=== PATIENT | male | born 1980 | race Two or more races ===

== ENCOUNTER 2019-07-03 17:48 | Inpatient (IN) | payer SELFPAY ==
[~2019-07-03] VITALS: Ht 165.1 cm; Wt 75.3 kg
[2019-07-03] VITALS (11 sets, daily range): BP systolic 91–148; BP diastolic 49–97; Ht 165.1 cm; Wt 75.3 kg
--- NOTE | ~2019-07-03 | DS ---
PATIENT:OSMIN BLANCO :78 MEDICAL RECORD: [id number] DISCHARGE SUMMARY ADMISSION DATE: 07/04/19 DISCHARGE DATE: 07/05/19 DATE OF ADMISSION: 07/03/2019. DATE OF DISCHARGE: 07/05/2019. IMPRESSION: Acute myocardial infarction. BRIEF HISTORY AND HOSPITAL COURSE: Admitted with acute myocardial infarction, underwent CHIEF CLERK with excellent results, started on a statin, Plavix, and ARB will consider starting beta blockade as outpatient due to borderline pressure currently. ACTIVITY: As tolerated. DIET: AHA diet. We will consider cardiac rehabilitation. Smoking cessation was reiterated on multiple occasions. Will be seen back in the office in approximately 3 to 4 weeks. TRANSINT:[id number] Voice Confirmation ID: [id number] DOCUMENT ID: [id number] LANCE JIMENEZ MD CC: [id number] DICTATION DATE: 07/05/19 0939 FARM TRACTOR OPERATOR: 07/06/19 0657 DIS IN 07/05/19 [id number] [place] [address]
--- NOTE | ~2019-07-03 | HEMODYNAMI ---
PATIENT:OSMIN BLANCO MEDICAL RECORD: [id number] : [birth year] [id number] ADMISSION DATE: 07/03/19 Generatedon:07/03/201919:24 Patient name: OSMIN BLANCO Patient #: [id number] SSN: : 1980 Date of study: 07/03/2019 Page: Of Hemodynamic Procedure Report Patient Data Patient Demographics Procedure consent was obtained First Name: OSMIN Gender: Male Last Name: FRANCIS : 1980 Patient #: [id number] Age: 38 year(s) Race: Other Additional ID: [id number] Contact details Address: [facility] State: [place] City: [facility] [place], [place] Zip code: [address] Admission Admission Data Admission Date: 07/03/2019 Admission Time: 17:48 Procedure Procedure Types Cath Procedure Diagnostic Procedure LHC LHC w/Coronaries PCI Procedure AMI/SVG/VENIPUNCTURIST PTCA or Stent AMI-BMS/JAYLIN Initial Hemochron ACT Test Procedure Description Procedure Date Procedure Date: 07/03/2019 Procedure Start Time: 18:58 Procedure End Time: 19:22 Procedure Staff Name Function Minor Hernández MD Performing Physician Silverio Li RT Monitor Ester Ferraro RN Nurse Antonia Gotti RT Scrub Procedure Data Cath Procedure Fluoroscopy Diagnostic fluoroscopy Total fluoroscopy Time: 4.2 time: 4.2 min min Diagnostic fluoroscopy Total fluoroscopy dose: 822 dose: 822 mGy mGy Contrast Material Contrast Material Type Amount (ml) Isovue 300 112 Entry Location Entry Primary Successful Side Size Upsize Upsize Entry Closure Succes sful Closure Location (Fr) 1 (Fr) 2 (Fr) Remarks Device Remarks Femoral Right 6 Fr Exoseal artery Short Estimated blood loss: 10 ml Diagnostic catheters Device Type Used For End Catheter Placement MULTIPACK JL 4.0 5Fr Procedure catheter MULTIPACK 3DRC 5Fr Procedure catheter MULTIPACK Pigtail 5 Fr Procedure catheter Procedure Complications No complications Procedure Medications Medication Administration Route Dosage 0.9% NaCl I.V. 100 ml/hr Oxygen etCO2 Nasal cannula 2 l/min Lidocaine 2% added to field 20 Heparin Flush Bag added to field 2 bags (1000units/500ml NS) Versed I.V. 2 mg Fentanyl I.V. 50 mcg Heparin Bolus I.V. 5000 units Integrilin (Bolus I.V. 6.8 ml 2mg/ml) Fentanyl I.V. 50 mcg Integrilin (Bolus wasted 3.2 ml 2mg/ml) Hemodynamics Rest Heart Rate: 82 (bpm) Pressure Samples Time Site Value (mmHg) Purpose Heart Use Rate(bpm) 19:15 LV 87/11,20 Snapshot 93 19:16 AO 85/62(73) Pullback 88 Gradients Valve Time Site Site 2 Mean SEP/DFP Peak To Heart Use 1 (mmHg) (sec/min) Peak Rate (mmHg) (bpm) Aortic 19:16 LV AO 3 16 88 85/62(73) Calculations Valve P-P Mean Valve Index Valve Source Name Gradient Area Flow (cm2) Aortic 3 3 Snapshots Pre Cath Intra NCS Post Cath Vital Signs Time Heart Resp SPO2 etCO2 NIBP (mmHg) Rhythm Pain Sedation Rate (ipm) (%) (mmHg) Status Level (bpm) 18:54:42 70 37 96 26.3 127/82(102) NSR 0 (11) 10(A) , No pain 18:58:44 76 27 98 27.8 137/89(106) NSR 0 (11) 10(A) , No pain 19:02:52 81 31 97 27 117/82(99) NSR 0 (11) 10(A) , No pain 19:06:54 92 27 97 30.1 128/79(112) NSR 0 (11) 10(A) , No pain 19:10:57 100 25 98 27 103/67(76) NSR 0 (11) 10(A) , No pain 19:14:57 105 25 96 28.6 107/73(86) NSR 0 (11) 10(A) , No pain 19:18:53 86 22 98 29.3 119/88(92) NSR 0 (11) 10(A) , No pain Medications Time Medication Route Dose Verified Delivered Reason Notes Effectiveness by by 18:53:46 0.9% NaCl I.V. 100 Minor Norman used for ml/hr TonyAki Ferraro procedure RN 18:53:52 Oxygen etCO2 2 Minor Ester used for Nasal l/min [facility] procedure cannula RN 18:53:57 Lidocaine 2% added 20ml Minor Gaxiola for local to vial [facility] anesthetic field MD DASILVA 18:54:01 Heparin Flush added 2 Minro Gaxiola used for Bag to bags [facility] procedure (1000units/500ml field MD DASILVA NS) 18:55:56 Versed I.V. 2 mg Minor Ester for sedation St Aki Ferraro MD, RN 18:56:06 Fentanyl I.V. 50 Minor Ester for sedation mcg St Aki Ferraro MD RN 19:04:44 Heparin Bolus I.V. 5000 Minor Ester for verif ied units [facility] anticoagulation with Dr. DASILVA RN [place] 19:04:57 Integrilin I.V. 6.8 Minor Ester for (Bolus 2mg/ml) ml St Aki Ferraro antiplatelet RN therapy 19:05:41 Fentanyl I.V. 50 Minor Ester for sedation mcg St Aki Ferraro MD, RN 19:16:33 Integrilin wasted 3.2 Minor Ester for (Bolus 2mg/ml) ml St Aki Ferraro antiplatelet RN therapy Procedure Log Time Note 18:39:02 Silverio Li RT(R) sent for patient. Start room use. 18:39:03 Time tracking: Regular hours (M-F 7:00 - 5:00) 18:39:07 Plan of Care:Hemodynamics will remain stable., Cardiac rhythm will remain stable., Comfort level will be maintained., Respiratory function will remain adequate., Patient/ family verbilizes understanding of procedure., Procedure tolerated without complication., Recovers from procedure without complications.. 18:40:42 Use device set Femoral Dx 18:40:45 Use device set TONY PCI 18:40:47 ACIST Syringe (61992) opened to sterile field. 18:40:48 Bag Decanter (2001S) opened to sterile field. 18:40:48 Medline Cath Pack ([id number]) opened to sterile field. 18:40:50 ACIST Hand Control (37695) opened to sterile field. 18:40:50 ACIST Manifold (26777) opened to sterile field. 18:40:51 Tegaderm 4 x 4 (1626W) opened to sterile field. 18:40:55 DIAGNOSTIC Multipack 5Fr catheter set ([id number]) opened to sterile field. 18:40:57 EMERALD Guide Wire (502-178) opened to sterile field. 18:41:00 INFLATOR Merit [place] (SA8148) opened to sterile field. 18:41:02 WHISPER 300cm guide wire ([id number]) opened to sterile field. 18:41:03 SHEATH 6FR [place] (IOZ648) opened to sterile field. 18:41:33 Lab results completed and on chart. 18:41:36 Risk of Mortality: 0.1 18:41:38 Risk of blood transfusion: 0.7 18:41:41 Risk of BALDEMAR: 1.9 18:48:39 Patient arrives emergently. 18:48:45 Patient arrived from ED to CCL 2. Patient remains on bed/stretcher for procedure. 18:48:48 Signed procedure consent form obtained from patient. 18:48:49 Warm blankets applied, and liz hugger turned on for patient comfort. 18:48:49 Correct patient and procedure confirmed by team. 18:48:50 ECG and BP/O2 sat monitors applied to patient. 18:48:57 Alarms reviewed by R. N. 18:48:58 Sharps counted by scrub and verified by R.N. 18:53:38 Vital chart was started 18:53:46 0.9% NaCl 100 ml/hr I.V. was administered by Ester Ferraro RN; used for procedure; Verbal order read back and verified. 18:53:52 Oxygen 2 l/min etCO2 Nasal cannula was administered by Ester Ferraro RN; used for procedure; Verbal order read back and verified. 18:53:57 Lidocaine 2% 20ml vial added to field was administered by Minor Hernández MD; for local anesthetic; Verbal order read back and verified. 18:54:01 Heparin Flush Bag (1000units/500ml NS) 2 bags added to field was administered by Minor Hernández MD; used for procedure; Verbal order read back and verified. 18:54:46 Baseline sample Acquired. 18:54:50 Rhythm: sinus rhythm , w/ ST elevation 18:54:51 Full Disclosure recording started 18:54:54 H&P Date Dictated: 07/03/2019 Emergent; H&P N/A. 18:54:56 Pre-procedure instructions explained to patient. 18:54:56 Pre-op teaching completed and patient verbalized understanding. 18:54:57 Family in waiting room. 18:55:01 Patient NPO since Lunch. 18:55:03 Is the patient allergic to Iodine/contrast media? No. 18:55:09 Is patient on blood thinner?Yes 18:55:11 ACC The patient was administered the following blood thiners within the last 24 hours: ACCPlavix 18:55:19 PLAVIX LOADED IN ER 18:55:21 Patient diabetic? No. 18:55:27 Previous problem with sedation/anesthesia? No ? 18:55:30 Snore? Yes 18:55:35 Sleep apnea? No 18:55:36 Deviated septum? No 18:55:37 Opens mouth fully? Yes 18:55:38 Sticks out tongue? Yes 18:55:39 Airway obstruction? No ? 18:55:40 Dentures? No ? 18:55:43 Pre procedure: right dorsailis pedis pulse 1+ Palpable, but thready & weak; easily obliterated 18:55:45 Patient pain scale 0/10 ?. 18:55:53 IV patent on arrival in left forearm with 0.9% NaCl at O. 18:55:56 Versed 2 mg I.V. was administered by Ester Ferraro RN; for sedation; Verbal order read back and verified. 18:55:58 Physician arrived 18:55:59 --------ALL STOP TIME OUT------ 18:55:59 Final Timeout: patient, procedure, and site verified with staff and physician. All members of the team are in agreement. 18:56:02 Right groin site verified by team. 18:56:05 Fire Safety Assessment: A--An alcohol-based skin anteseptic being used preoperatively., C--Open oxygen or nitrous oxide is being used., D--An ESU, laser, or fiber-optic light is being used. 18:56:06 Fentanyl 50 mcg I.V. was administered by Ester Ferraro RN; for sedation; Verbal order read back and verified. 18:56:08 Physical assessment completed. ASA score P 3 - A patient with severe systemic disease as per Minor Hernández MD. 18:56:11 1) 90+ Normal kidney functon but urine findings or structural abnormalities or genetic trait point to kidney disease. 18:56:14 Maximum allowable contrast dose (3.7 X eGFR X 0.75)250 ml. 18:56:17 Sedation plan: IV Moderate Sedation Medication:Versed, Fentanyl 18:58:43 Procedure started. 18:58:54 Local anesthetic to right femoral artery with Lidocaine 2% by Minor Hernández MD.INITIAL ACCESS ONLY 19:00:33 A 6 Fr Short sheath was inserted into the Right Femoral artery 19:01:02 A MULTIPACK JL 4.0 5Fr catheter was advanced over the wire and used for Procedure. 19:01:53 LCA angiography performed. 19:02:18 ACCDominant side:Left 19:02:20 Catheter removed. 19:03:36 A MULTIPACK 3DRC 5Fr catheter was advanced over the wire and used for Procedure. 19:03:39 RCA angiography performed. 19:03:43 Catheter removed. 19:03:56 GUIDE 6FR XBLAD 3.5 catheter ([id number]) opened to sterile field. 19:04:04 6 Fr XBLAD 3.5 guide catheter was inserted over the wire 19:04:12 Pre PCI Site: [place] pLAD has 100% stenosis. 19:04:14 ACC Pre-intervention ALLAN Flow is 0. 19:04:20 Whisper wire advanced. 19:04:44 Heparin Bolus 5000 units I.V. was administered by Ester Ferraro RN; for anticoagulation; verified with Dr. Braxton Verbal order read back and verified. 19:04:57 Integrilin (Bolus 2mg/ml) 6.8 ml I.V. was administered by Ester Ferraro RN; for antiplatelet therapy; Verbal order read back and verified. 19:05:41 Fentanyl 50 mcg I.V. was administered by Ester Ferraro RN; for sedation; Verbal order read back and verified. 19:06:39 Wire advanced across lesion. 19:07:34 Inflate balloon Inflation number: 1 A EMERGE OTW 3.0 x 15 balloon ([id number]) was prepped and advanced across the Prox LAD 100, then inflated to 14 JU for 0:30 (min:sec) . 19:12:44 Pt went into sustained V-tach. Pt shokced at 360 joules, restoring sinus rhythm. 19:12:57 Quick Combo opened to sterile field. 19:13:04 Balloon removed over the wire. 19:13:17 Place stent Inflation Number: 2 A INTEGRITY 4.0 x 18 stent ([id number]) was prepped and advanced across the Prox LAD 100. The stent was deployed at 14 JU for 0:30 (min:sec) 0. 19:13:25 EXOSEAL 6Fr (EX600) opened to sterile field. 19:13:37 ACC Post-intervention ALLAN Flow is 3. 19:13:47 Post PCI Site: [place] pLAD has 0% stenosis. 19:13:49 Stent catheter was removed intact over wire. 19:13:50 Wire removed. 19:13:50 Guide catheter removed. 19:14:49 A MULTIPACK Pigtail 5 Fr catheter was advanced over the wire and used for Procedure. 19:16:07 LV angiography performed. 19:16:08 LV gram done using VILLALOBOS 19:16:13 EF : 40 % 19:16:15 LV hemodynamics recorded. 19:16:17 Injector settings: Ml/sec: 10, Volume: 20, 19:16:20 Catheter removed. 19:16:33 Integrilin (Bolus 2mg/ml) 3.2 ml wasted was administered by Ester Ferraro RN; for antiplatelet therapy; Verbal order read back and verified. 19:16:37 Sheath removed intact; hemostasis achieved with Exoseal to the Right Femoral artery. 19:16:39 Procedure ended.(Physican Out) 19:16:52 Fluoroscopy time 04.20 minutes. 19:16:55 Fluoroscopy dose: 822 mGy 19:16:55 Flurop Dose total: 822 19:17:00 Dose Area Product 29418 mGy/cm. 19:17:06 Contrast amount:Isovue 300 112ml. 19:17:08 Maximum allowable dose exceeded? No. 19:17:09 Sharps counted by scrub and verified by R.N. 19:17:10 Insertion/operative site no bleeding no hematoma. 19:17:13 Post-op/insertion site Right Femoral artery dressed using a 4 x 4 and Tegaderm. 19:17:15 Post Procedure Pulses reassessed and unchanged 19:17:18 Post-procedure physical assessment completed. ASA score P 3 - A patient with severe systemic disease as per Minor Hernández MD. 19:17:21 Post procedure rhythm: sinus rhythm 19:17:27 Estimated blood loss: 10 ml 19:17:57 Post procedure instruction explained to patient.Patient verbalizes understanding. 19:17:57 Patient needs reinforcement of post procedure teaching. 19:18:48 Procedure type changed to Cath procedure, Diagnostic procedure, LHC, C w/Coronaries, PCI procedure, AMI/SVG/VENIPUNCTURIST PTCA or Stent, AMI-BMS/JAYLIN Initial, Hemochron ACT Test 19:18:49 Procedure and supply charges have been captured, reviewed, submitted and are correct. 19:18:52 ACT drawn and resulted at 229 seconds. (normal therapeutic range 180-240 seconds). 19:18:53 Procedure Complication : No complications 19:21:41 Vital chart was stopped 19:21:45 [facility] Findings: MVD- PCI performed (see procedure note) 19:21:46 Operative report dictated upon procedure completion. 19:21:47 See physician's report for complete and final results. 19:21:49 Report given to CVICU. 19:21:52 Patient transfered to CVICU with Bed. 19:22:00 Procedure ended. 19:22:00 Full Disclosure recording stopped 19:23:14 End room use (Document Last) 19:23:24 End room use (Document Last) 19:23:58 End room use (Document Last) Intervention Summary Intervention Notes Time ActionType Lesion and Equipment Action# Pressure Duration Attributes Used 19:07:34 Inflate Prox LAD EMERGE OTW 1 14 00:30 balloon 3.0 x 15 balloon ([id number]) 19:13:17 Place stent Prox LAD INTEGRITY 2 14 00:30 4.0 x 18 stent ([id number]) Device Usage Item Name Manufacture Quantity Catalog Number Hospital Part Current Min imal Lot# / Charge Number Stock Stock Serial# Code ACIST Acist 1 05223 996305 402655 161563 20 Syringe Medical (62776) Systems Inc Bag Decanter Microtek 1 623484 24328 841171 5 () Medical Inc. Medline Cath Medline 1 [id number] 317355 68376 966078 5 Pack ([id number]) ACIST Hand Acist 1 66044 731002 113031 503946 5 Control Medical (22931) Systems Inc ACIST Acist 1 02059 350444 286335 032341 5 Manifold Medical (15365) Systems Inc Tegaderm 4 x 3M 1 1626W 299596 006662 386968 5 4 (1626W) DIAGNOSTIC Cardinal 1 TN2929 730077 86458 161767 30 [place] 5Fr catheter set (YE2213) EMERALD Cardinal 1 502455 928190 124528 554900 5 Guide Wire Health (502455) INFLATOR Merit 1 ZY1959 533972 868483 173869 15 [facility] BasixCompak (IF5571) WHISPER Andrade 1 [id number] 364144 644672 017806 5 300cm guide Vascular wire (7025797YS) SHEATH 6FR Terumo 1 JZQ208 695867 775278 131421 40 [place] (BWE494) MULTIPACK JL Cardinal 1 174670 5 4.0 5Fr Health catheter MULTIPACK Cardinal 1 826701 5 3DRC 5Fr Health catheter GUIDE 6FR Cardinal 1 [id number] 975223 712770 592058 10 XBLAD 3.5 Health catheter ([id number]) EMERGE OTW [place] 1 [id number] 998657 144349 764661 5 86924293 3.0 x 15 Scientific balloon ([id number]) Quick Startupio IonLogix Systems Systems 1 33605-063683 512631 350193 338069 5 INTEGRITY Medtronic 1 [id number] 937335 024166 382856 5 [id number] 4.0 x 18 stent ([id number]) EXOSEAL 6Fr Cardinal 1 EX600 558139 559223 009092 10 (EX600) Health MULTIPACK Cardinal 1 762502 5 Pigtail 5 Fr Health catheter Signature Audit [place] Stage Time Signature Unsigned Intra-Procedure 07/03/2019 Silverio Li 7:23:24 PM RT(R) Intra-Procedure 07/03/2019 Ester Ferraro 7:23:58 PM RN Intra-Procedure 07/03/2019 Minor Carney 7:24:55 PM Aki DASILVA Signatures Performing Physician : Signature : Minor Hernández MD Date : Time : Monitor : Silverio Guillermo RT Signature : Date : Time : Nurse : Ester Ronan RN Signature : Date : Time : [address] [place] [address]
[2019-07-03 18:12] LABS: BASOPHILS 0.2 % (0-2); EOSINOPHILS 1.7 % (0-7); HEMATOCRIT 47.3 % (42.0-54.0); HEMOGLOBIN 16.3 g/dL (13.5-17.5); IMMATURE GRANULOCYTES 0.2 % (0-5); LYMPHOCYTES 34.4 % (15-50); MCHC 34.5 g/dL (31.0-37.0); MCV 81.3 fL (80.0-100.0); MEAN PLATELET VOLUME 9.8 fL (7.4-10.4); MONOCYTES 6.6 % (2-11); NEUTROPHILS 56.9 % (40-80); PLATELET COUNT 238 10x3/uL (130-400); RBC 5.82 10x6/uL (4.20-6.10); RDW 13.8 % (11.5-14.5); WBC 17.5 10x3/uL (4.8-10.8)
--- NOTE | 2019-07-03 18:14 | NUR ---
DIVIDEND DEPOSIT VOUCHER CLERK/BLOOD CONSENTS SIGNED.
--- NOTE | 2019-07-03 18:18 | NUR ---
PT REPORTS NO RELIEF WITH 1ST NITRO
[2019-07-03 18:22] LABS: APTT 26.3 SECONDS (22.8-39.4); INR 1.03 (0.85-1.17)
[2019-07-03 18:25] LABS: CALC OSMOLALITY 282 mosm/kg (275-300); CALCIUM 9.1 mg/dL (8.5-10.1); CARBON DIOXIDE 25.7 mmol/L (21.0-32.0); CHLORIDE - SERUM 104 mmol/L (98-107); CREATININE - SERUM 0.9 mg/dL (0.6-1.3); GLUCOSE 111 mg/dL (74-106); SODIUM 142 mmol/L (136-145); UREA NITROGEN 11 mg/dL (7-18); eGFR NON AFRICAN AMERICAN > 90 mL/min (90-120)
--- NOTE | 2019-07-03 18:25 | NUR ---
PT DENIES PAIN RELIEF WITH 8 MG MORPHINE AND 2 NITRO
--- NOTE | 2019-07-03 18:37 | NUR ---
PT REPORTS PAIN IS WORSE THAN 10/10 AT THIS TIME.
--- NOTE | 2019-07-03 18:40 | NUR ---
STOPPED BOLUS NORMAL SALINE CHANGED RATE TO KVO PER EDP DENISE. PT RECEIVED AROUND 75 ML AT BOLUS RATE.
[2019-07-03 18:46] LABS: ALBUMIN 3.8 g/dL (3.4-5.0); ALKALINE PHOSPHATASE 112 U/L (46-116); ALT (SGPT) 40 U/L (10-68); BILIRUBIN - TOTAL 0.36 mg/dL (0.2-1.3); CKMB 2.6 U/L (0.0-3.6); CREATINE KINASE 249 UL (21-232); MAGNESIUM - SERUM 1.9 mg/dL (1.8-2.4); PRO BNP 303 pg/mL (0-125); PROTEIN - SERUM 7.9 g/dL (6.4-8.2)
[2019-07-03 18:50] LABS: TROPONIN-I 1.567 ng/mL (0.000-0.060)
--- NOTE | 2019-07-03 19:03 | NUR ---
LAB CALLED WITH ELEVATED TROPONIN. CONTACTED CVICU ADVISED CALIXTO COYLE OF ELEVATED TROPONIN.
[2019-07-03 19:19] LABS: CHOL - HDL RATIO 6.3 ratio (2.3-4.9); LDL-HDL RATIO 4.4 ratio (1.5-3.5)
--- NOTE | 2019-07-03 19:30 | NUR ---
ASSESSMENT DONE SEE FLOW SHEET VSS. FAMILY AT BEDSIDE.
--- NOTE | 2019-07-03 21:00 | NUR ---
PT AWAKE AND ASKING ABOUT TURNING ON SIDE, PT WAS INFORMED THAT HE COULD NOT TURN AT THIS TIME, BED WAS TILTED, PT ADVISED IMPROVED COMFORT, NO DISTRESS NOTED, VSS, WILL MONITOR FOR CHANGES
--- NOTE | 2019-07-03 23:00 | NUR ---
REASSESSMENT COMPLETE VSS
[2019-07-04] VITALS (28 sets, daily range): BP systolic 90–138; BP diastolic 54–684
--- NOTE | 2019-07-04 00:54 | NUR ---
PT INCREASING SOB. O2 SAT IN 80S. DR JIMENEZ INFORMED OF PT STATUS. ORDERS RECEIVED WILL CONTINUE TO MONITOR.
[2019-07-04 01:57] LABS: BASOPHILS 0.1 % (0-2); EOSINOPHILS 0.3 % (0-7); HEMATOCRIT 48.6 % (42.0-54.0); HEMOGLOBIN 16.7 g/dL (13.5-17.5); IMMATURE GRANULOCYTES 0.3 % (0-5); LYMPHOCYTES 16.3 % (15-50); MCH 27.8 pg (26.0-34.0); MCHC 34.4 g/dL (31.0-37.0); MCV 80.9 fL (80.0-100.0); MEAN PLATELET VOLUME 9.8 fL (7.4-10.4); MONOCYTES 5.9 % (2-11); NEUTROPHILS 77.1 % (40-80); PLATELET COUNT 227 10x3/uL (130-400); RBC 6.01 10x6/uL (4.20-6.10); WBC 13.9 10x3/uL (4.8-10.8)
--- NOTE | 2019-07-04 02:00 | NUR ---
PT STATES HE IS HAVING CHEST PAIN. PVCS NOTED ON MONITOR. EKG AND LABS OBTAINED. WILL CONTINUE TO MONITOR.
[2019-07-04 02:06] LABS: CALC OSMOLALITY 284 mosm/kg (275-300); CALCIUM 8.7 mg/dL (8.5-10.1); CARBON DIOXIDE 26.9 mmol/L (21.0-32.0); CHLORIDE - SERUM 105 mmol/L (98-107); CREATININE - SERUM 0.9 mg/dL (0.6-1.3); GLUCOSE 123 mg/dL (74-106); POTASSIUM - SERUM 4.2 mmol/L (3.5-5.1); SODIUM 143 mmol/L (136-145); UREA NITROGEN 10 mg/dL (7-18); eGFR NON AFRICAN AMERICAN > 90 mL/min (90-120)
[2019-07-04 02:17] LABS: ALKALINE PHOSPHATASE 118 U/L (46-116); ALT (SGPT) 50 U/L (10-68); BILIRUBIN - TOTAL 0.72 mg/dL (0.2-1.3); PROTEIN - SERUM 7.6 g/dL (6.4-8.2)
--- NOTE | 2019-07-04 02:56 | NUR ---
REASSESSMENT COMPLETE. PT STATES CHEST PAIN A 4/10 FEELING MUCH BETTER. RUNS OF PVCS WILL CONTINUE TO MONITOR.
--- NOTE | 2019-07-04 05:20 | NUR ---
PT RESTING WITH EYES CLOSED, PT PT STATES THAT HIS PAIN IS MUCH BETTER, NO DISTRESS NOTED, VSS AT THIS TIME
--- NOTE | 2019-07-04 07:00 | NUR ---
AWAKE AND ALERT SKIN WARM AND DRY. STATES HE IS STILL HAVING CHEST PAIN. CHEST PAIN WAS BETTER AFTER HEART CATH. PATIENT STATES HE HAS BEEN HAVING CHEST PAIN SINCE TUESDAY. DESCRIBED "JUST HURTS". IV RIGHT AC WITHOUT REDENSSS OR SWELLING INFUSING WITH INTERGRILLIN. NO SHORTNESS OR BREATH. OXYGEN AT 2 LITERS NC, BUT WILL REMOVE AT TIMES AND PULSE OX IS GREATER THAN 95%. MONITOR SR TO ST OCC PVC NOTED. RIGHT GROIN DRESSING DRY AND INTACT. PEDAL PULSES PALABLE
--- NOTE | 2019-07-04 07:30 | NUR ---
PATIENT STATES CHEST PAIN IS RADIANTING DOWN HIS LEFT ARM. NTG SL GIVEN PO MEDS GIVEN.
--- NOTE | 2019-07-04 07:45 | NUR ---
NO CHANGE IN PAIN WITH NTG. MORPHINE 4 MG IV GIVEN SLOWLY
--- NOTE | 2019-07-04 08:30 | NUR ---
STATES CHEST PAIN IS BETTER. NAPPING AT INTERVALS.
--- NOTE | 2019-07-04 09:15 | NUR ---
DR. JEFFRIES HERE UPDATE GIVEN. NEW ORDERS FOR TORADOL AND DIET RECEIVED.
--- NOTE | 2019-07-04 10:00 | NUR ---
UP TO BATHROOM, ASSIST WITH BATH AND ORAL CARE. PATIENT AMBULATING WITHOUT DIFFICULTY. COMPLETE LINEN CHANGE. STATES PAIN IS GETTING BETTER AFTER TORADOL. STATES SHE CAN TELL HE IS MORE COMFORTABLE. INTERGILLIN OFF. IV SALINE LOCK. DRINKING PO FLUIDS WELL. ICE WATER PROVIDED
--- NOTE | 2019-07-04 10:02 | HP ---
PATIENT: OSMIN BLANCO MEDICAL RECORD: [id number] ACCOUNT: [id number] LOCATION:[facility] Nhi.CV03 : 78 ADMISSION DATE: 07/03/19 PCP: No PCP HISTORY AND PHYSICAL EXAMINATION HISTORY OF PRESENT ILLNESS: A 38-year-old gentleman with strong family history of coronary artery disease, unknown lipids. He does smoke about a pack a day, presented with stuttering chest pain since last Tuesday, culminating with a severe substernal chest pressure, nausea, diaphoresis, shortness of breath, brought to the ER, was found to have acute anterior myocardial infarction, being brought to the microbiology lab manager on an urgent basis. PAST MEDICAL HISTORY: Otherwise, unremarkable. MEDICATIONS: None chronically. ALLERGIES: None known. SOCIAL HISTORY: Smokes about a pack a day, nondrinker, no illicit drug use. REVIEW OF SYSTEMS: The patient reports easy bruising but reports no swollen glands. The patient reports no fever, no night sweats, no significant weight gain, no significant weight loss. No significant exercise tolerance. The patient reports no dry eyes, no irritation, no vision change. Patient reports no difficulty hearing and no ear pain. Patient reports no frequent nose bleeds or nose and sinus problems. Patient reports on arm pain on exertion. No shortness of breath while lying down. No history of heart murmur. Patient reports no cough, no wheezing or coughing up blood. Patient reports no abdominal pain, no vomiting. Normal appetite. No diarrhea and not vomiting blood. No nausea and no constipation. Patient reports no incontinence. No difficulty urinating. No hematuria. No increased frequency. Patient reports no muscle aches. No weakness, no arthralgias, no back pain. No swelling of the extremities. Patient reports no abnormal mole, no jaundice, no rashes. Reports no loss of consciousness. No weakness and no numbness. No seizures, dizziness, or headaches. The patient reports no depression, no sleep disturbance, feeling safe in a relationship and no alcohol abuse. Patient reports on fatigue. Reports no runny nose or sinus pressure. No itching, no hives, and no frequent sneezing. PHYSICAL EXAMINATION: GENERAL: Pleasant gentleman, somewhat uncomfortable appearing, in no acute distress. VITAL SIGNS: Blood pressure 106/64, pulse 70 and regular. HEENT: Normocephalic, atraumatic. NECK: No bruits noted. HEART: Regular. LUNGS: Apar[place] clear. ABDOMEN: Soft, nontender. EXTREMITIES: Pulse 2+. No edema. IMPRESSION: Acute anterior myocardial infarction to the filling station laborer on an urgent basis. TRANSINT:[id number] Voice Confirmation ID: [id number] DOCUMENT ID: [id number] HISTORY AND PHYSICAL [id number] OSMIN BLANCO,LANCE Billy MD at 1002 CC: [id number] DICTATION DATE: 07/03/191930 WEB APPLICATION TESTER: 07/03/192227 [facility] [address] [place] [address]
--- NOTE | 2019-07-04 10:02 | OP ---
PATIENT NAME: OSMIN BLANCO MEDICAL RECORD: [id number] :78 LOCATION:[facility] D.CV03 ADMISSION DATE: SURGEON: LANCE JIMENEZ MD DATE OF OPERATION: 07/03/2019 PROCEDURES: Left heart catheterization, selective coronary angiography, right femoral artery approach. CATHETERS: A 5-Divehi sheath, 5/4 left and right Crissy, 5/4 pig. The procedure was well tolerated. The patient returned to [place], sheath removed. ExoSeal device placed. FINDINGS: Left ventriculography in 30-degree VILLALOBOS view shows mid anterior wall down to the anterior apex and true apical region hypokinesis. Overall, function reduced at 40%. CORONARY ANATOMY: LEFT MAIN: Left main is free of disease. LAD: Fills for a very short period of time, it is totally occluded. CIRCUMFLEX: There is a true ramus and circumflex free of disease. RIGHT CORONARY ARTERY: The right coronary artery is a medium size right, free of disease. 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 PLAN: Intervention momentarily. DESCRIPTION OF PROCEDURE: A 5-Divehi sheath was exchanged for a 6-Divehi sheath. XB LAD guiding catheter provided excellent guide catheter support, followed by 300 cm Whisper wire was placed a totally occluded LAD down this portion of the vessel. Pre-deployment balloon was a 3.0 x 15 mm Bacon. Stent deployed was a 4.0 x 18 mm Integrity [id number]-heoo-pstpjep stent up to 14 atmospheres for fall. Final angiography shows excellent resolution of 100% stenosis, no significant residual. Nice step up proximally and step down distally. ALLAN flow improved from 0 to 3. Integrilin and heparin both were loaded in the case as were Plavix postop. Sheath was closed with ExoSeal device. The patient was returned to the ICU in guarded but stable. TRANSINT:[id number] Voice Confirmation ID: [id number] DOCUMENT ID: [id number] LANCE JIMENEZ MD at 1002 CC: [id number] DICTATION DATE: 07/03/191928 HOOKER LASTER: 07/04/19 0544 [facility] [address] [place] [address]
--- NOTE | 2019-07-04 12:00 | NUR ---
lunch tray served ate few bites, poor appetite. family at bedside questions answered
--- NOTE | 2019-07-04 14:30 | NUR ---
PATIENT STATES HIS CHEST PAIN IS STARTING TO INCREASE UP TO A 3. REQUESTING SOMETHING FOR PAIN. DR. JIMENEZ CALLED. ORDERS RECEIVED FOR TORDOL AND SOLU MEDROL.
--- NOTE | 2019-07-04 17:03 | NUR ---
SUPER TRAY SERVED ATE [facility]. DRINKING ALOT OF COFFEE AND WATER. NO DISTRESS. RIGHT GROIN DRESSING DRY AND INTACT NO SWELLING AROUND DRESSING. MONITOR [facility] PVC. SALINE LOCK RIGHT AC WITHOUT SWELLING OR REDNESS. MOVING INDEPENDENTLY IN ROOM. NO DISTRESS. CHEST PAIN GETTING BETTER
--- NOTE | 2019-07-04 18:15 | NUR ---
VISITORS HERE. PATIENT DOING WELL NO DISTRESS.
--- NOTE | 2019-07-04 19:00 | NUR ---
REPORT RECEIVED, SHIFT ASSESSMEN COMPLETE PER FLOW SHEET, PT AWAKE AND ALERT SITTING IN BED, DENIES PAIN OR NEEDS AT THIS TIME, LARGE ICE WATER GIVEN PER REQUEST, VSS, NSR ON CM, BLE SCD'S, BED ALARM ON WILL CONTINUE TO MONITOR
--- NOTE | 2019-07-04 21:00 | NUR ---
VISITORS AT BEDSIDE, PT AWAKE AND ALERT, DENIES NEEDS AT THIS TIME, VSS
--- NOTE | 2019-07-04 23:00 | NUR ---
REASSESSMENT COMPLETED, NO ACUTE CHANGES SINCE PRIOR ASSESSMENT, PT AWAKE AND ALERT, DENIES NEEDS AT THIS TIME, VSS, NSR ON CM, REPOSITIONS IN BED AND IN ROOM WITHOUT ASSIST, CALL LIGHT IN REACH, WILL CONTINUE TO MONITOR
[2019-07-05] VITALS (12 sets, daily range): BP systolic 85–111; BP diastolic 51–83
--- NOTE | 2019-07-05 03:00 | NUR ---
REASSESSMENT COMPLETE PER FLOW SHEET, NO ACUTE CHANGES FROM PRIOR ASSESSMENT, VSS, NSR ON CM, PT C/O CHEST DISCOMFORT 4/10 ON NUMERIC PAIN SCALE, MED GIVEN PER MAR/ORDERS, PT RESTING IN BED WATCHING VIDEOS ON PHONE, LARGE ICE WATER GIVEN PER REQUEST, CALL LIGHT IN REACH, BED ALARM ON, WILL CONTINUE TO MONITOR
--- NOTE | 2019-07-05 07:00 | NUR ---
RECEIVED BEDSIDE REPORT ON PATIENT AND ASSUMED CARE. PATIENT ALERT AND ORIENTED X 4. VSS. IV 20 GA TO RIGHT AC, NSL, FLUSHES EASILY AND POSITIVE BLOOD RETURN. BBS CLEAR AND EQUAL. ON RA WITH SPO2 96%. RIGHT GROIN DRESSING CLEAN DRY AND INTACT, SOFT NO HEMATOMA NOTED. HEAD TO TOE ASSESSMENT COMPLETED. CM - 76 NSR.
--- NOTE | 2019-07-05 07:53 | NUR ---
PATIENT GIVEN BREAKFAST TRAY, VSS. NO NEEDS AT THIS TIME.
--- NOTE | 2019-07-05 08:10 | NUR ---
PATEINT ATE APPROXIMATELY 50% OF BREAKFAST, STATES TASTES BLAND. VSS. MORNING MEDS GIVEN PER SEP. NO NEEDS AT THIS TIME.
--- NOTE | 2019-07-05 09:11 | NUR ---
PATIENT WANTING A CIGARETTE STATES SMOKES A PACK A DAY FOR MANY YEARS. WANTING A NICOTINE PATCH. DR. JIMENEZ CALLED.
--- NOTE | 2019-07-05 09:17 | NUR ---
DR. JIMENEZ CALLED BACK, ORDERS 21 MG NICODERM PATCH FOR PATIENT. STATES WILL BE DISCHARGING PATIENT TODAY TO HOME.
--- NOTE | 2019-07-05 09:33 | NUR ---
DR. JIMENEZ AT ROOM UPDATED AND EXAINES PATIENT. TO DISCHARGE PATIENT TO HOME.
--- NOTE | 2019-07-05 09:35 | NUR ---
20 GA IV TO RIGHT AC REMOVED FOR DISCHARGE. DIRECT PRESSURE HELD AND DRESSED WITH 2X2 AND TAPE.
--- NOTE | 2019-07-05 10:06 | NUR ---
PATIENT DISCHARGE INSTRUCTIONS GIVEN, QUESTIONS ANSWERED AND GIVEN PRECRIPTIONS. DISCHARGED TO HOME, VSS, AMBULATORY.
[2019-07-05] MEDS ORDERED: LIPITOR40 MG PO (16:02)
[2019-07-05] MEDS ORDERED: PLAVIX75 MG PO (16:02)
[2019-07-05] MEDS ORDERED: COZAAR50 MG PO (16:03)
--- NOTE | 2019-07-05 18:35 | MORECARE ---
CASE MANAGEMENT DISCHARGE SUMMARY PATIENT: OSMIN BLANCO UNIT: [id number] ADM DATE: 07/04/19 AGE: 38 : [birth year] SEX: M [facility] AUTHOR: FREDERICK RICE PHYSICIAN: REFERRING PHYSICIAN: LANCE JIMENEZ MD DATE OF SERVICE: 07/05/19 Discharge Plan Patient Name: OSMIN BLANCO Facility: [facility]:[place] : 1980 Planned Disposition: Home Anticipated Discharge Date: Discharge Date: 07/05/2019 Expected LOS: Initial Reviewer: [email or web address] Initial Review Date: 07/04/2019 Generated: 07/05/19 7:34 pm Patient Name: OSMIN BLANCO Page [id number] at 1835 All edits/amendments must be made on the electronic document DICTATION DATE: 07/05/191833 [employer] INVENTORY CLERK: BONITA 07/05/191833 RPT#: [id number] DC DATE:07/05/19 STATUS: DIS IN [facility] [address] [place] [address] END OF REPORT
--- NOTE | 2019-07-05 18:43 | MORECARE ---
CASE MANAGEMENT DISCHARGE SUMMARY PATIENT: OSMIN BLANCO UNIT: [id number] ADM DATE: 07/04/19 AGE: 38 : 78 SEX: M [facility] AUTHOR: DWAYNE,DOC PHYSICIAN: REFERRING PHYSICIAN: LANCE JIMENEZ MD DATE OF SERVICE: 07/05/19 Discharge Plan Patient Name: OSMIN BLANCO Facility: [facility]:[place] : 1980 Planned Disposition: Home Anticipated Discharge Date: Discharge Date: 07/05/2019 Expected LOS: Initial Reviewer: [email or web address] Initial Review Date: 07/04/2019 Generated: 07/05/19 7:42 pm Comments DCP- Discharge Planning Updated by [email or web address]: Carlyn Meyers on 07/05/19 5:[address] Patient Name: OSMIN BLANCO Admission Status: ER Accout number: [id number] Admission Date: 07-04-2019 : 1980 Admission Diagnosis: Attending: LANCE JIMENEZ Current LOS: 1 Anticipated DC Date: Planned Disposition: Home Primary Insurance: UNINSURED DISCOUNT PLAN Discharge Planning Comments: CM met with patient at bedside after explaining CM role and obtaining verbal consent. Patient lives at home with family where he is independent with his care and plans to return there upon discharge. Patient feels this would be a safe discharge. CM discussed availability / needs of home health and medical equipment. Patient denies any discharge needs at this time. Patient states he will have his family drive him home upon discharge. CM gave patient Good RX card to help with expense of medication d/t uninsured. CM will continue to follow and assist as needed with discharge planning / needs. Workforce Management Coordinator: Carlyn Meyers DCPIA - Discharge Planning Initial Assessment Updated by [email or web address]: Carlyn Meyers on 07/05/19 6:37 pm * Is the patient Alert and Oriented? Yes * How many steps to enter\exit or inside your home? 2-3 * PCP NO PCP * [facility] * Preadmission Environment Home with Family * ADLs Independent * Equipment None * List name and contact numbers for known caregivers / representatives who currently or will assist patient after discharge: MOR MARTINEZ DOLL [phone] * Verbal permission to speak to the caregivers and representatives has been obtained from the patient. Yes * Community resources currently utilized None * Additional services required to return to the preadmission environment? No * Can the patient safely return to the preadmission environment? Yes * Has this patient been hospitalized within the prior 30 days at any hospital? No Last DP export: 07/05/19 5:35 pm Patient Name: OSMIN BLANCO Page [phone] at 1843 All edits/amendments must be made on the electronic document DICTATION DATE: 07/05/191841 DATABASE ADMIN: BONITA 07/05/191841 RPT#: [id number] DC DATE:07/05/19 STATUS: DIS IN [facility] [address] [place] [address] END OF REPORT
== END 2019-07-05 10:24 | disposition home or self-care (01) | DRG 249 ==
LOC: D.CVICU 17:48 → D.ER 17:48 → D.CVICU 19:38 → D.ER 19:38 → EDSTATUS 19:43 → D.CVICU 07-04 12:10
PROVIDERS: Emergency Medicine; ADMIT Internal Medicine Interventional Cardiology; ATTEND Internal Medicine Interventional Cardiology
PROC: 4A023N7 Measurement of Cardiac Sampling and Pressure, Left Heart, Percutaneous Approach (ICD-10-PCS; 2019-07-03)
PROC: 02703DZ Dilation of Coronary Artery, One Artery with Intraluminal Device, Percutaneous Approach (ICD-10-PCS; principal; 2019-07-03 18:30)
PROC: B2151ZZ Fluoroscopy of Left Heart using Low Osmolar Contrast (ICD-10-PCS; 2019-07-03 18:30)
DX: I21.09 ST elevation (STEMI) myocardial infarction involving other coronary artery of anterior wall (principal); F17.200 Nicotine dependence, unspecified, uncomplicated; Z82.49 Family history of ischemic heart disease and other diseases of the circulatory system